=== PATIENT | female | born 1995 | race Caucasian/White ===

== ENCOUNTER → 2018-07-12 08:04 | Outpatient (CLI) | payer OTHER, SELFPAY ==
[2018-07-12 19:59] LABS: Chlamydia Trachomatis by PCR Negative (Negative); Neisserai gonorrhoeae by PCR Negative (Negative); Probe Check PASS; Sample Adequacy Control PASS; Specimen Processing Control PASS
[2018-07-14 13:24] LABS: HPV Reflexed? NOT INDICATED
== END ==
PROVIDERS: Family Provider Family Medicine; PCP Family Medicine; Visit Provider Family Medicine
DX: Z12.4 Encounter for screening for malignant neoplasm of cervix (principal); Z11.3 Encounter for screening for infections with a predominantly sexual mode of transmission
CPT/HCPCS: 87491; 87591; 88175; G0145

== ENCOUNTER 2023-08-25 21:40 | Inpatient (IN) | payer OTHER, SELFPAY ==
[2023-08-25 19:47] VITALS: BP 111/61; PULSE 93
[2023-08-25 19:51] VITALS: BMI 26.9
[2023-08-25 22:34] LABS: Absolute Lymphocyte Count 1.95 X10^3/uL (0.83-4.51); Absolute Neutrophil Count 19.7 X10^3/uL (2.0-7.7); Basophil# 0.07 X10^3/uL; Basophil% 0.3 % (0-1); Eosinophil# 0.01 X10^3/uL; Hematocrit 33.6 % (37-47); Hemoglobin 10.9 g/dL (12.0-15.0); Lymphocyte # 1.95 X10^3/ul (0.83-4.51); Lymphocyte % 8.4 % (19-41); Mean Corp Hgb Conc 32.4 g/dL (32-36); Mean Corpuscular Hgb 25.5 pg (27.0-32.0); Mean Corpuscular Volume 78.7 fL (81-99); Mean Platelet Vol. 11.4 fl (6.2-12.0); Monocyte# 1.15 X10^3/uL; NRBC Flagged by Analyzer 0 % (0-5); Neutrophil # 19.72 X10^3/uL (2.7-7.7); Platelet Count 229 K/mm3 (150-450); RBC Distribution Width CV 12.7 % (11.6-14.6); RBC Distribution Width SD 36.1 fl (35.1-43.9); Red Blood Count 4.27 M/mm3 (4.2-5.4); White Blood Count 23.2 K/mm3 (4.4-11.0)
[2023-08-25 22:38] VITALS: BP 119/75; PULSE 87; RESP 16; TEMP 36.6
[2023-08-25 23:02] VITALS: PULSE 91; O2SAT 99
[2023-08-25 23:38] VITALS: BP 116/58; PULSE 88
[2023-08-25 23:53] VITALS: PULSE 106; PULSE 89; RESP 16; TEMP 36.6; O2SAT 100; O2SAT 91
[2023-08-26] VITALS (16 sets, daily range): BP systolic 92–127; BP diastolic 46–73; PULSE 77–133; RESP 16–17; TEMP 36.5–37.4; O2SAT 98–100
[2023-08-26 01:09] LABS: Syphilis Antibodies Non-reactive
--- NOTE | 2023-08-26 01:13 | PCM.HP.OB ---
HPI - General General Date of Admission: 08/25/23 HPI Narrative OMER BROWN, is a 27 F at 40 weeks who presents with contractions that started earlier today. Denies any loss of fluid or vaginal bleeding. Positive movement. Maternal Data Information KIMBERLY Calculator Estimated Delivery Date Method Current WG Current Estimate 08/23/23 Manual 40w 3d PFSH PFSH Medical History no medical history Home Medications ?Medication ?Instructions ?Recorded ?Last Taken ?Type docosahexaenoic acid PO 08/25/23 08/25/23 History Allergy/AdvReac Type Severity Reaction Status Date / Time No Known Allergies Allergy Verified 08/25/23 21:42 Social History Smoking Status: Never smoker History Elective abortions Hx Para 0 Spontaneous abortions Hx # Term Pregnancies Ectopic pregnancies Hx # Pregnancies Multiple births # of living children ROS Eyes Eyes: Denies blurry vision, change in vision or spots in vision ENT HEENT: Denies dizziness or headache(s) Cardiovascular Cardiovascular: Denies abdominal pain, chest pain or dyspnea Respiratory/Chest Respiratory/Chest: Denies cough, dyspnea, shortness of breath at rest or shortness of breath with exertion Gastrointestinal Gastrointestinal: Denies abdominal pain, diarrhea or vomiting Genitourinary Genitourinary: Denies change in urinary stream, difficulty urinating or dysuria Musculoskeletal Musculoskeletal: Reports none Integumentary Integumentary: Denies rash Neurologic Neurologic: Denies dizziness, headache(s), memory loss or weakness Psychiatric Psychiatric: Reports none Vital Signs Vital Signs Vital Signs: 08/25/23 19:47 08/25/23 19:47 08/25/23 19:47 Temperature Temperature Source Pulse Rate 93 Respiratory Rate Blood Pressure 111/61 111/61 BP Systolic 111 111 BP Diastolic 61 61 Pulse Ox 08/25/23 19:47 08/25/23 22:38 08/25/23 22:38 Temperature Temperature Source Pulse Rate 93 Respiratory Rate Blood Pressure 119/75 119/75 BP Systolic 119 119 BP Diastolic 75 75 Pulse Ox 08/25/23 22:38 08/25/23 22:38 08/25/23 22:38 Temperature Temperature Source Temporal Pulse Rate 87 87 Respiratory Rate Blood Pressure BP Systolic BP Diastolic Pulse Ox 08/25/23 22:38 08/25/23 22:38 08/25/23 22:38 Temperature Temperature Source Temporal Pulse Rate Respiratory Rate 16 16 Blood Pressure BP Systolic BP Diastolic Pulse Ox 08/25/23 22:38 08/25/23 22:38 08/25/23 23:02 Temperature 97.8 F 97.8 F Temperature Source Pulse Rate 91 Respiratory Rate Blood Pressure BP Systolic BP Diastolic Pulse Ox 08/25/23 23:02 08/25/23 23:02 08/25/23 23:02 Temperature Temperature Source Pulse Rate 91 Respiratory Rate Blood Pressure BP Systolic BP Diastolic Pulse Ox 99 99 08/25/23 23:38 08/25/23 23:38 08/25/23 23:38 Temperature Temperature Source Pulse Rate 88 Respiratory Rate Blood Pressure 116/58 L 116/58 L BP Systolic 116 116 BP Diastolic 58 58 Pulse Ox 08/25/23 23:38 08/25/23 23:53 08/25/23 23:53 Temperature Temperature Source Pulse Rate 88 89 89 Respiratory Rate Blood Pressure BP Systolic BP Diastolic Pulse Ox 08/25/23 23:53 08/25/23 23:53 08/25/23 23:53 Temperature Temperature Source Pulse Rate 106 H Respiratory Rate Blood Pressure BP Systolic BP Diastolic Pulse Ox 91 91 08/25/23 23:53 08/25/23 23:53 08/25/23 23:53 Temperature Temperature Source Pulse Rate 106 H Respiratory Rate Blood Pressure BP Systolic BP Diastolic Pulse Ox 100 100 08/25/23 23:53 08/25/23 23:53 08/25/23 23:53 Temperature Temperature Source Temporal Temporal Pulse Rate Respiratory Rate 16 Blood Pressure BP Systolic BP Diastolic Pulse Ox 08/25/23 23:53 08/25/23 23:53 08/25/23 23:53 Temperature 97.8 F 97.8 F Temperature Source Pulse Rate Respiratory Rate 16 Blood Pressure BP Systolic BP Diastolic Pulse Ox 08/26/23 00:41 08/26/23 00:41 08/26/23 00:41 Temperature Temperature Source Pulse Rate 77 Respiratory Rate Blood Pressure 97/53 L 97/53 L BP Systolic 97 97 BP Diastolic 53 53 Pulse Ox 08/26/23 00:41 Temperature Temperature Source Pulse Rate 77 Respiratory Rate Blood Pressure BP Systolic BP Diastolic Pulse Ox Weight Weight: 157 lb Body Mass Index (BMI) 26.9 Physical Exam Const alert, oriented x3 and no apparent distress General Appearance: cooperative Orientation / Consciousness: awake Exam Limitations: no limitations HEENT normocephalic Head and Scalp: normal to inspection Eyes General Eye: normal appearance of both eyes Neck full ROM and no lymphadenopathy Lymph Lymphatic: no lymphadenopathy noted Chest inspection of chest normal Resp normal respiratory effort, normal air movement and clear to auscultation bilaterally Effort and Inspection: able to speak in complete sentences and symmetric chest movement Cardio regular rate and regular rhythm GI normal to inspection, nondistended, normoactive bowel sounds Manual OB Exam: presentation cephalic and dilated 4 Back/Spine normal ROM Extremity full ROM and no calf tenderness Skin no rashes or lesions noted General Skin Exam: no breakdown Neuro oriented x3 and CN's II-XII intact bilaterally Psych mental status grossly normal and thought process normal Labs Labs Labs: Blood Type B POSITIVE Antibody Screen NEGATIVE Hct 33.6 % (37-47) L Hgb 10.9 g/dL (12.0-15.0) L Syphilis Total Ab Non-reactive Assessment & Plan (1) 40 weeks gestation of : (2) Spontaneous onset of labor: PLAN: Plan CE 4.5/80/-1 Contractions palpate moderate and are every 1-3 minutes GBS negative Desires unmedicated labor and delivery Admit to L&D IA If no cervical change after a couple of hours, will start Pitocin IV Dr. Mcclure notified of admission
--- NOTE | 2023-08-26 01:31 | PN.OBGYN_ITS ---
Subjective Subjective Patient breathing through contractions. Requesting AROM. Objective Data Objective Data Vital Signs: Vital Signs Temp Pulse Resp BP Pulse Ox 98.1 F 103 H 16 97/53 L 99 08/26/23 01:08 08/26/23 01:09 08/26/23 01:08 08/26/23 00:41 08/26/23 01:09 Weight: 157 lb Body Mass Index (BMI) 26.9 Intake & Output: Intake and Output for Last 24 Hours 08/24/23 08/25/23 08/26/23 23:59 23:59 23:59 Output Total 100 / 100 75 / 75 Balance -100 / -100 -75 / -75 Lab / Micro Data 08/25/23 22:00 Labs: Laboratory Results - last 24 hr 08/25/23 22:00: WBC 23.2 H, RBC 4.27, Hgb 10.9 L, Hct 33.6 L, MCV 78.7 L, MCH 25.5 L, MCHC 32.4, RDW Std Deviation 36.1, RDW Coeff of Beba 12.7, Plt Count 229, MPV 11.4, Immature Gran % (Auto) 1.300 H, Neut % (Auto) 85.0 H, Lymph % (Auto) 8.4 L, [place] % (Auto) 5.0, Eos % (Auto) 0.0, Baso % (Auto) 0.3, Absolute Neuts (auto) 19.7 H, Absolute Lymphs (auto) 1.95, Nucleated RBC % 0, Syphilis Total Ab Non-reactive, Blood Type B POSITIVE, Antibody Screen NEGATIVE Assessment & Plan (1) Spontaneous onset of labor: (2) 40 weeks gestation of : (3) Meconium in amniotic fluid: PLAN: Plan CE /- bulging bag AROM for moderate amount of meconium fluid Requesting nitrous oxide for pain control Anticipate
[2023-08-26] MEDS: Oxytocin 15 Units/NS 250ml 15 UNITS/250 ML IV.SOLN 83 UNITS IV (03:30)
[2023-08-26] MEDS: Oxytocin 10 UNITS/ML Vial IM (04:08)
--- NOTE | 2023-08-26 04:15 | EX.PCM.OBRPT ---
Assessment & Plan (1) (spontaneous vaginal delivery): (2) Cervical laceration: (3) Laceration, obstetrical, first degree: Maternal Data Information KIMBERLY Calculator Estimated Delivery Date Method Current WG Current Estimate 08/23/23 Manual 40w 3d Vaginal Delivery Maternal Presentation Maternal Presentation: that arrived in spontaneous labor. Operative Information Date of Procedure: 08/26/23 Pre-Operative Diagnosis: Term gestation, Spontaneous onset of labor Post-Operative Diagnosis: , Live male Surgery / Procedure Performed: Spontaneous Vaginal Delivery Type of Anesthesia: Local with 1% Lidocaine Drain: - (Straight cath after delivery of placenta) Estimated Blood Loss: 250 Time of Delivery: 03:23 Findings Description of Procedure: Patient unmedicated and feeling pressure. Requesting for AROM. AROM for thick meconium fluid. Provided bedside assistance with pushing. head delivered followed immediately by anterior shoulder and remainder of body without traction. Loose nuchal cord easily reduced. Vigorous male placed on maternal abdomen and was attended to by nursing staff. Pitocin IM given for active management of the third stage of labor. 3 vessel cord clamped and cut by FOB and infant placed skin to skin with patient. Placenta delivered spontaneously and intact. Straight cathed for clear/yellow urine. Fundus firm and 3 below U. With exploration, anterior cervical laceration noted. Pressure applied and Dr. Mcclure called to unit for repair. Anterior cervical laceration and first degree vaginal laceration repaired by Dr. Mcclure. Hemostasis obtained. EBL 250 cc APGARS 8/9. Presentation: Vertex Amniotic Membrane Rupture Type: Artificial Time of Membrane Rupture: 0135 Amniotic Fluid Description: Thick meconium Placental Delivery Description: Spontaneous Placenta Disposition: [facility] Cord Vessel Description: 3 Vessels Cord Entanglement: Around neck x 1, loose Nuchal Cord Compression: Without compression Infant A Gender: Male (1 minute): 8 (5 minute): 9 Delayed Cord Clamping: Yes Post Vaginal Delivery Medications Given After Delivery: IM Pitocin Episiotomy Description: None Laceration: Cervical Extension/lac and 1st degree Complication Complications: None
[2023-08-26] MEDS: Lidocaine 1% (20 ml mdv) 20 ML Vial INFILT (04:31)
[2023-08-26] MEDS: Lactated Ringers 1,000 ML 50 ML IV (04:32)
[2023-08-26] MEDS: Ketorolac 30 MG/ML Syringe IV (04:32)
[2023-08-27 01:20] VITALS: BP 97/51; PULSE 70; RESP 16; TEMP 36.9
[2023-08-27 04:10] VITALS: BP 114/75; PULSE 76; RESP 16; TEMP 37.1
--- NOTE | 2023-08-27 07:28 | PCM.PN.OB ---
Subjective Subjective Doing well per patient and nursing staff. Ambulating and taking PO without difficulty. Voiding and passing flatus. Pain controlled. , services for assistance. Denies headache, visual changes, chest pain, shortness of breath, leg pain or increased bleeding. Lochia normal. Objective Data Objective Data Vital Signs: Vital Signs Temp Pulse Resp BP Pulse Ox O2 Del Method 98.7 F 76 16 114/75 98 Room Air 08/27/23 04:10 08/27/23 04:10 08/27/23 04:10 08/27/23 04:10 08/26/23 16:31 08/27/23 04:10 Oxygen Delivery Method Room Air Weight: 157 lb Body Mass Index (BMI) 26.9 Intake & Output: Intake and Output for Last 24 Hours 08/25/23 08/26/23 08/27/23 23:59 23:59 23:59 Intake Total 302 / 302 Output Total 100 / 100 325 / 325 Balance -100 / -100 -23 / -23 Lab / Micro Data 08/25/23 22:00 ROS Constitutional Constitutional: Reports systems reviewed and no addt'l complaints, except as documented; Denies headache(s) Eyes Eyes: Denies acute decrease in peripheral vision, blurry vision or change in vision ENT HEENT: Reports systems reviewed and no addt'l complaints, except as documented Cardiovascular Cardiovascular: Denies chest pain or dizziness Respiratory/Chest Respiratory/Chest: Denies cough, dyspnea, dyspnea on exertion, shortness of breath at rest or shortness of breath with exertion Gastrointestinal Gastrointestinal: Denies abdominal pain, diarrhea, nausea or vomiting Genitourinary Genitourinary: Denies abdominal discomfort Musculoskeletal Musculoskeletal: Denies limited range of motion Integumentary Integumentary: Reports systems reviewed and no addt'l complaints, except as documented Neurologic Neurologic: Reports systems reviewed and no addt'l complaints, except as documented Psychiatric Psychiatric: Reports systems reviewed and no addt'l complaints, except as documented Endocrine Endocrinology: Reports systems reviewed and no addt'l complaints, except as documented Hematologic/Lymphatic Hematologic/Lymphatic: Reports systems reviewed and no addt'l complaints, except as documented Allergic/Immunologic Allergic/Immunologic: Reports systems reviewed and no addt'l complaints, except as documented Physical Exam Const alert and oriented x3 General Appearance: cooperative Orientation / Consciousness: awake, oriented to person, oriented to place and oriented to time Exam Limitations: no limitations HEENT normocephalic Head and Scalp: normal to inspection, normocephalic and atraumatic Face and Sinus: normal facial exam Eyes General Eye: normal appearance of both eyes Neck full ROM Chest Chest: symmetrical chest wall rise Resp normal respiratory effort and normal air movement Auscultation: clear to auscultation bilaterally Cardio regular rate, regular rhythm, S1 normal heart sound, S2 normal heart sound, no murmurs, no rub, no gallops and no clicks GI normal to inspection, nondistended, normoactive bowel sounds and non-tender appearance of the vagina normal Bladder / Kidney Exam: no CVA tenderness Back/Spine normal ROM Extremity normal to inspection and full ROM Skin no rashes or lesions noted Neuro oriented x3 and moves all extremities Sensorium / Orientation: awake, alert and oriented to person Assessment & Plan (1) Laceration, obstetrical, first degree: (2) Cervical laceration: (3) (spontaneous vaginal delivery): (4) Lactating mother: PLAN: Plan 1) PPD#1 2) 3) Vitals stable 4) Pain management 5) D/C home 6) Follow up in 2 wk and 6 wk PP
--- NOTE | 2023-08-27 07:30 | PCM.DC.SUM ---
Providers Date of Admission: 08/25/23 Primary Care Physician: Dr. Maddie Iglesias MD Reason For Visit: VAG Diagnosis Discharge Diagnosis (1) Laceration, obstetrical, first degree: Status: Acute Code(s): O70.0 - First degree perineal laceration during delivery (2) Cervical laceration: Status: Acute Code(s): S37.63XA - Laceration of uterus, initial encounter (3) (spontaneous vaginal delivery): Status: Acute Code(s): O80 - Encounter for full-term uncomplicated delivery (4) Lactating mother: Status: Acute Code(s): Z39.1 - Encounter for care and examination of lactating mother Plan 1) PPD#1 2) 3) Vitals stable 4) Pain management 5) D/C home 6) Follow up in 2 wk and 6 wk PP Medications at Discharge Home Medications docosahexaenoic acid PO 08/25/23 acetaminophen 500 mg tablet 1,000 mg (2 x 500 mg) PO Q6H PRN PRN Pain 1-10 Or Fever #0 tabs 08/27/23 naproxen 500 mg tablet 500 mg PO Q8H PRN PRN Pain Score 1-10 #0 tabs 08/27/23 Hospital Course Operations section Summary of Care Provided Minutes Spent on Discharge: 15 Hospital Course: 16 year old presented on 08/23/20 in active labor. arrest of descent and section completed by . Course complicated by acute hemorrhage. IV iron sucrose given during hospital stay. Discharge home on POD #2. Weight / BMI Weight Weight: 157 lb Body Mass Index (BMI) 26.9 ABG / Lab / Microbiology Data 08/25/23 22:00 D/C Instructions Discharge Diet: No restrictions May resume sexual activity in: 6 weeks Weight Bearing Status: Full weight bearing Lifting Restricted to (Lbs): 20 Call your doctor if you observe: Fever of 101 or Higher, Inability to urinate, Inability to have a bowel movement, Using more than 1 pad per hour, Shortness of breath, Dizziness, Fainting spells, Chest pain, Increased palpitations (irregular heartbeat), Calf discomfort and Uncontrolled pain Meaningful Use Info Meaningful Use Meaningful Use Diagnoses (Choose all that apply): None applicable Ischemic Stroke Statin Dosing Therapy Reference: STATIN DOSE THERAPY REFERENCE: * Patients > 75 years receive moderate or high dose statin therapy. * Patients 75 years or YOUNGER should receive HIGH intensity statin dose unless contraindicated. You will be required to document reason for non-treatment if statin daily dose does not meet guidelines. HIGH DOSE STATIN THERAPY DAILY Atorvastatin > than or = to 40 mg Rosuvastatin > than or = to 20 mg Amlodipine + Atorvastatin > than or = to 2.5/40 mg Ezetimibe + Simvastatin 10/80 mg Simvastatin 80mg Discharge Plan Admission Admit Date/Time: 08/25/23 21:40 Primary Reason for Your Visit: Vaginal Delivery Attending Provider: Karla Campoverde Primary Care Provider: Maddie Iglesias Discharge Orders/Prescriptions Prescriptions: New acetaminophen 500 mg Tablet 1,000 mg PO Q6H PRN PRN (Reason: Pain 1-10 Or Fever) Qty: 0 0RF naproxen 500 mg Tablet 500 mg PO Q8H PRN PRN (Reason: Pain Score 1-10) Qty: 0 0RF No Action docosahexaenoic acid [ DHA] PO Referrals / Follow Up: Maddie Iglesias MD [Primary Care Provider] - Disposition Disposition (needs filled in before D/C Order can be placed): Home, Self Care
[2023-08-27 08:15] VITALS: BP 110/70; PULSE 87; RESP 15; TEMP 36.4
[2023-08-27] MEDS: Senna/Docusate Sodium 1 Tablet PO (09:50)
[2023-08-27 12:30] VITALS: BP 104/66; PULSE 78; RESP 15; TEMP 36.4
[2023-08-27 21:03] VITALS: BP 114/75; PULSE 87; RESP 14; TEMP 36.1
[2023-08-28 02:29] VITALS: BP 96/67; PULSE 79; RESP 16; TEMP 36.4
[2023-08-28] MEDS: Senna/Docusate Sodium 1 Tablet PO (09:46)
[2023-08-28 10:15] VITALS: BP 110/74; PULSE 93; RESP 15; TEMP 36.8
--- NOTE | 2023-08-28 11:23 | PCM.PN.OB ---
Subjective Subjective Doing well per patient and nursing staff. Ambulating and taking PO without difficulty. Voiding and passing flatus. Pain controlled. , services for assistance. Denies headache, visual changes, chest pain, shortness of breath, leg pain or increased bleeding. Lochia normal. Objective Data Objective Data Vital Signs: Vital Signs Temp Pulse Resp BP Pulse Ox O2 Del Method 98.3 F 93 15 110/74 98 Room Air 08/28/23 10:15 08/28/23 10:15 08/28/23 10:15 08/28/23 10:15 08/26/23 16:31 08/28/23 02:29 Oxygen Delivery Method Room Air Weight: 157 lb Body Mass Index (BMI) 26.9 Intake & Output: Intake and Output for Last 24 Hours 08/26/23 08/27/23 08/28/23 23:59 23:59 23:59 Intake Total 302 / 302 Output Total 325 / 325 Balance -23 / -23 Lab / Micro Data 08/25/23 22:00 ROS Constitutional Constitutional: Reports systems reviewed and no addt'l complaints, except as documented; Denies headache(s) Eyes Eyes: Denies acute decrease in peripheral vision, blurry vision or change in vision ENT HEENT: Reports systems reviewed and no addt'l complaints, except as documented Cardiovascular Cardiovascular: Denies chest pain or dizziness Respiratory/Chest Respiratory/Chest: Denies cough, dyspnea, dyspnea on exertion, shortness of breath at rest or shortness of breath with exertion Gastrointestinal Gastrointestinal: Denies abdominal pain, diarrhea, nausea or vomiting Genitourinary Genitourinary: Denies abdominal discomfort Musculoskeletal Musculoskeletal: Denies limited range of motion Integumentary Integumentary: Reports systems reviewed and no addt'l complaints, except as documented Neurologic Neurologic: Reports systems reviewed and no addt'l complaints, except as documented Psychiatric Psychiatric: Reports systems reviewed and no addt'l complaints, except as documented Endocrine Endocrinology: Reports systems reviewed and no addt'l complaints, except as documented Hematologic/Lymphatic Hematologic/Lymphatic: Reports systems reviewed and no addt'l complaints, except as documented Allergic/Immunologic Allergic/Immunologic: Reports systems reviewed and no addt'l complaints, except as documented Physical Exam Const alert and oriented x3 General Appearance: cooperative Orientation / Consciousness: awake, oriented to person, oriented to place and oriented to time Exam Limitations: no limitations HEENT normocephalic Head and Scalp: normal to inspection, normocephalic and atraumatic Face and Sinus: normal facial exam Eyes General Eye: normal appearance of both eyes Neck full ROM Chest Chest: symmetrical chest wall rise Resp normal respiratory effort and normal air movement Auscultation: clear to auscultation bilaterally Cardio regular rate, regular rhythm, S1 normal heart sound, S2 normal heart sound, no murmurs, no rub, no gallops and no clicks GI normal to inspection, nondistended, normoactive bowel sounds and non-tender appearance of the vagina normal Bladder / Kidney Exam: no CVA tenderness Back/Spine normal ROM Extremity normal to inspection and full ROM Skin no rashes or lesions noted Neuro oriented x3, CN's II-XII intact bilaterally and moves all extremities Sensorium / Orientation: awake, alert and oriented to person Motor Exam: clonus absent Deep Tendon Reflexes: Rt Patellar (L4): 2+ and Lt Patellar (L4): 2+ Assessment & Plan (1) Lactating mother: (2) Laceration, obstetrical, first degree: (3) Cervical laceration: (4) (spontaneous vaginal delivery): PLAN: Plan 1) PPD#2 2) Pain management 3) Vitals stable 4) Follow up in 2wk and 6wk PP 5) D/C home. D/C cancelled yesterday due to not urinating and unable to perform circumcision.
== END 2023-08-28 14:05 | disposition home or self-care (01) | DRG 768 ==
LOC: WPOUT 08-26 16:41 → WP 08-26 16:41
PROVIDERS: Admitting Provider Advanced Practice Midwife; PCP Family Medicine; Referring Provider Advanced Practice Midwife; Visit Provider Advanced Practice Midwife
DX: O69.81X0 Labor and delivery complicated by cord around neck, without compression, not applicable or unspecified (principal); Z37.0 Single live birth; O71.3 Obstetric laceration of cervix; O70.0 First degree perineal laceration during delivery; O77.0 Labor and delivery complicated by meconium in amniotic fluid; Z3A.40 40 weeks gestation of pregnancy
CPT/HCPCS: 59025; 59050; 85025; 86780; 86850; 86900; 86901; 99221; J7120; G0378